=== PATIENT | male | born 1985 | race African-American/Black ===

== ENCOUNTER 2020-07-24 16:03 | Emergency (ER) | payer OTHER ==
[~2020-07-24] VITALS: Ht 185.4 cm; Wt 75.3 kg
[2020-07-24 16:09] VITALS: BP 145/79
== END 2020-07-24 19:01 ==
LOC: ER 16:03
DX: H61.21 Impacted cerumen, right ear (principal); F17.210 Nicotine dependence, cigarettes, uncomplicated